=== PATIENT | female | born 2000 | race Caucasian/White ===

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

== ENCOUNTER 2022-04-06 16:12 | Emergency (ER) | payer OTHER ==
[2022-04-06 16:58] VITALS: BP 107/69; PULSE 79; RESP 20; TEMP 99.1; BMI 21.2
[2022-04-06] MEDS ORDERED: IBUPROFEN 100 MG/5 ML UNIT DOSE CUPS PO ONE (17:18)
== END 2022-04-06 22:47 | disposition home or self-care (01) ==
LOC: JER 16:12
DX: B34.9 Viral infection, unspecified (principal)
CPT/HCPCS: 36415; 86308; 99283-25

== ENCOUNTER 2023-03-30 23:27 | Emergency (ER) | payer OTHER ==
[2023-03-30 23:31] VITALS: BMI 21.2
[2023-03-31 01:12] LABS: URINE APPEARANCE CLEAR; URINE BILIRUBIN NEGATIVE (NEGATIVE); URINE COLOR YELLOW; URINE GLUCOSE (UA) NEGATIVE (NEGATIVE); URINE KETONE TRACE (NEGATIVE); URINE LEUK ESTERASE NEGATIVE (NEGATIVE); URINE NITRITE NEGATIVE (NEGATIVE); URINE PROTEIN NEGATIVE (NEGATIVE)
[2023-03-31 01:43] LABS: HCG,QUALITATIVE URINE Negative
[2023-03-31 01:45] LABS: BASO % 0.8 % (0-2.0); EOS % 1.8 % (0-4.5); HEMATOCRIT 36.3 % (32.4-45.2); HEMOGLOBIN 12.2 GM/dL (10.7-15.3); MCH 27.3 pg (25.7-33.7); MCHC 33.7 g/dl (32.0-36.0); MEAN CELL VOLUME 81.2 fl (80-96); MEAN PLT VOLUME 8.9 fl (7.5-11.1); MONO % 13.8 % (3.8-10.2); NEUT % 55.6 % (42.8-82.8); PLATELET COUNT 212 10^3/uL (134-434); RBC 4.47 M/mm3 (3.60-5.2); RDW 14.8 % (11.6-15.6); WHITE BLOOD COUNT 7.5 K/mm3 (4.0-10.0)
[2023-03-31 01:53] LABS: INR 1.1 (0.83-1.09); PROTHROMBIN TIME (PATIENT) 12.8 SEC (9.7-13.0)
[2023-03-31 01:55] LABS: ACTIVATED PTT 30.4 SECONDS (25.2-36.5)
[2023-03-31 02:06] LABS: POTASSIUM 3.9 mmol/L (3.5-5.1)
[2023-03-31 02:11] LABS: ALBUMIN 3.7 g/dl (3.4-5.0); BLOOD UREA NITROGEN 10.4 mg/dL (7-18); CALCIUM 8.7 mg/dL (8.5-10.1)
[2023-03-31 02:12] LABS: CREATININE 0.7 mg/dL (0.55-1.3)
[2023-03-31 02:13] LABS: BILIRUBIN,TOTAL 0.2 mg/dL (0.2-1); TOT PROT 7.6 g/dl (6.4-8.2)
[2023-03-31 05:43] VITALS: PULSE 68; RESP 16; TEMP 98.8
[2023-03-31 09:18] VITALS: BP 122/72
== END 2023-03-31 09:19 | disposition home or self-care (01) ==
LOC: JER 23:27
DX: R10.31 Right lower quadrant pain (principal); R10.33 Periumbilical pain
CPT/HCPCS: 36415; 74177-TC; 76830-TC; 80053; 81003; 84703; 85025; 85610; 85730; 99285-25

== ENCOUNTER 2023-04-27 12:36 | Emergency (ER) | payer OTHER ==
[2023-04-27 12:43] VITALS: BP 106/62; PULSE 99; RESP 20; TEMP 102.4; BMI 20.1
[2023-04-27] MEDS ORDERED: ACETAMINOPHEN 500 MG TABLET (FP) ONE (12:51)
[2023-04-27] MEDS ORDERED: ACETAMINOPHEN 500 MG TABLET (FP) PO ONE (12:51)
== END 2023-04-27 15:13 | disposition home or self-care (01) ==
LOC: JERFT 12:36
DX: R05.9 Cough, unspecified (principal); R50.9 Fever, unspecified; J02.9 Acute pharyngitis, unspecified; R53.83 Other fatigue; R09.81 Nasal congestion; R06.02 Shortness of breath; J10.1 Influenza due to other identified influenza virus with other respiratory manifestations; Z20.822 Contact with and (suspected) exposure to COVID-19
CPT/HCPCS: 0241U-QW; 99283-25

== ENCOUNTER 2023-12-11 20:56 | Emergency (ER) | payer OTHER ==
[2023-12-11 21:04] VITALS: BP 100/66; PULSE 68; RESP 18; TEMP 98.7; BMI 20.3
[2023-12-11 21:51] LABS: EPI CELLS 11 /uL (0-25.1); HYALINE CASTS 0 /uL (0-3.1); PH,URINE 6.5 (5.0-8.0); URINE APPEARANCE CLOUDY; URINE BACTERIA >9,000 /uL (0-1359); URINE BILIRUBIN NEGATIVE (NEGATIVE); URINE COLOR YELLOW; URINE GLUCOSE (UA) NEGATIVE (NEGATIVE); URINE KETONE NEGATIVE (NEGATIVE); URINE LEUK ESTERASE 3+ (NEGATIVE); URINE NITRITE POSITIVE (NEGATIVE); URINE PROTEIN 1+ (NEGATIVE); URINE RBC 594 /uL (0-23.9); URINE WBC 2340 /uL (0-25.8)
[2023-12-11] MEDS ORDERED: CEPHALEXIN MONOHYDRATE 500 MG CAPSULE (UD) ONE (21:57)
[2023-12-11] MEDS ORDERED: IBUPROFEN 400 MG TABLET (FP) PO ONE (21:57)
[2023-12-11] MEDS: CEPHALEXIN MONOHYDRATE 500 MG CAPSULE (UD) PO ONE (21:59)
[2023-12-11] MEDS: IBUPROFEN 400 MG TABLET (FP) PO ONE (21:59)
[2023-12-11 22:46] LABS: HCG,QUALITATIVE URINE NEGATIVE
== END 2023-12-11 22:00 | disposition home or self-care (01) ==
LOC: JER 20:56
DX: N30.00 Acute cystitis without hematuria (principal); R30.0 Dysuria; R35.0 Frequency of micturition
CPT/HCPCS: 81003; 84703; 87086; 87186; 99283-25